=== PATIENT | female | born 1990 | race Caucasian/White ===

== ENCOUNTER 2024-09-04 17:52 | Emergency (ER) | payer OTHER ==
[2024-09-04 18:20] VITALS: RESP 18; TEMP 97
[2024-09-04 18:30] LABS: Absolute Neutrophil Ct (ANC) 3.01 x10^3/uL (1.56-6.13); BASOPHIL % 0.2 % (0.1-1.2); Basophil (Absolute #) 0.01 x10^3/uL (0.01-0.08); Eosinophil % 1.9 % (0.7-5.8); Eosinophil (Absolute #) 0.09 x10^3/uL (0.04-0.36); Hematocrit 42.1 % (34.1-44.9); Hemoglobin 13.8 g/dL (11.2-15.7); IMMATURE GRAN # 0.02 x10^3u/L (0.001-0.031); IMMATURE GRAN % 0.4 % (0.001-0.429); Lymphocyte (Absolute #) 1.13 x10^3/uL (1.18-3.74); Lymphocytes % 23.5 % (19.3-51.7); Mean Cell Volume 90.7 fL (79.4-94.8); Mean Corpuscular Hemoglobin 29.7 pg (25.6-32.2); Mean Corpuscular Hgb Concent. 32.8 g/dL (32.2-35.5); Mean Platelet Volume 9.7 fL (9.4-12.3); Monocyte (Absolute #) 0.54 x10^3/uL (0.24-0.86); Monocytes % 11.3 % (4.7-12.5); Neutrophil % 62.7 % (34.0-71.1); Platelet Count 286 x10^3/uL (182-369); Red Blood Count 4.64 x10^6/uL (3.93-5.22); Red Cell Distribution Width 13.6 % (11.7-14.4); White Blood Count 4.8 x10^3/uL (3.98-10.04)
[2024-09-04 18:42] LABS: Appearance Cloudy (Clear); Bilirubin Negative (Negative); Blood Negative (Negative); Glucose, Urine Negative (Negative); Ketones Trace (Negative); Leukocyte Esterase Negative (Negative); Nitrite Positive (Negative); Ph 5.5 (4.6-8.0); Protein,Urine Dip Negative (Negative); Specific Gravity 1.025 (1.005-1.030)
[2024-09-04 18:43] LABS: HCG SERUM TEST NEGATIVE (NEGATIVE)
[2024-09-04 18:44] LABS: Bacteria Many /HPF (None Seen); Epithelial Cells Few /HPF (None Seen); RBC 0-2 /HPF (0-5); WBC 0-2 /HPF (0-5)
[2024-09-04 18:45] LABS: ACETAMINOPHEN < 10 ug/ml (10-30); ALBUMIN 4.3 g/dL (3.5-5.0); ALKALINE PHOSPHATASE 66 U/L (38-126); ANION GAP 13.7 MEQ/L (5-15); BLOOD UREA NITROGEN 17 mg/dL (7-17); CHLORIDE 110 mmol/L (98-107); Calcium 9.3 mg/dL (8.4-10.2); Carbon Dioxide 24 mmol/L (22-30); Creatinine 1 1.11 mg/dL (0.52-1.04); EST GLOMERULAR FILTRATION RATE 66.9 ML/MIN; ETHYL ALCOHOL < 10 mg/dL (0-10); Glucose 98 mg/dL (74-106); SALICYLATE < 1.0 mg/dL (2-20); SGOT/AST 45 U/L (14-36); SGPT/ALT 62 U/L (0-35); SODIUM 143 mmol/L (135-145); Total Protein 7.7 g/dL (6.3-8.2)
--- NOTE | 2024-09-04 19:43 | ERPHSYRPT ---
- History of Present Illness Time Seen by Provider: 09/04/24 19:37 Source: patient Exam Limitations: no limitations Patient Subjective Stated Complaint: PT HERE FOR STRESS AND DEPRESSION, Triage Nursing Assessment: PT BROUGHT IN BY POLICE, HER BOYFRIEND CALLED POLICE BECAUSE SHE PUT A CORD AROUND HER NECK. SHE DENIES WANTING TO HARM HERSELF, SHE STATES SHE IS UNDER A LOT OF STRESS SHE HAS A FREIND , HER BOYFRIEND SAIRA HAVE CANCER AND HER DAUGHTER IS AT A MENTAL HEALTH FACILTY. SHE VOICES BEING OVERWHELMED AT HOME, PT HERE [place], WALKE IN GAIT STEADY, RESP EASY, SKIN W/D/P.MOVES ALL EXT WELL. NO REDNESS OR ABRASIONS TO NECK Physician History: This is an obese 34-year-old white female patient who presents to the emergency department escorted by law enforcement secondary to the patient having stress, depression and suicidal gesture with wrapping a cord around her neck. In the last several weeks she has had a large number of stressful events including an older daughter with suicidal and homicidal tendencies wreaking havoc at the home per patient report. She also found out today that her significant other was diagnosed with prostate cancer. She already has history of depression and she states she has not been taking her medications because, although it helps control her depression, it also makes her sleepy and drowsy and she states she needs to be awake and more alert with her older daughter being at home and having outbursts of anger and suicidal, homicidal gestures. Patient denies headache. She denies shortness of breath. She denies abdominal pain. She denies chest pain Timing/Duration: today Severity of Symptoms-Max: moderate Severity of Symptoms-Current: moderate Context related to: significant other, living circumstances Suicidal thoughts: gesture Associated Symptoms: anxiety, depressed, suicidal ideation Previous symptoms: no prior history, no recent treatment Allergies/Adverse Reactions: No Known Drug Allergies Allergy (Unverified 09/04/24 18:02) Home Medications: Lumateperone Tosylate [Caplyta] 42 mg PO DAILY 09/04/24 [History] Naproxen 500 mg [Naprosyn 500 MG] 500 mg PO BID 09/04/24 [History] Spironolactone 25 mg [Aldactone 25 MG] 25 mg PO DAILY 09/04/24 [History] Tizanidine HCl 1 ea DAILY 09/04/24 [History] Hx Influenza Vaccination/Date Given: No Hx Pneumococcal Vaccination/Date Given: No Immunizations Up to Date: Yes Travel Risk - International Travel Have you traveled outside of the country in past 3 weeks: No - Emerging Infectious Disease Are you exhibiting symptoms associated with any current EIDs: No - Past Medical History Pertinent Past Medical History: Yes Psycho-Social History: Anxiety, Depression - Past Surgical History Past Surgical History: Yes Gastrointestinal: Cholecystectomy - Female History Hx Last Menstrual Period: SEPT Hx Now: No - Social History Smoking Status: Never smoker Exposure to second hand smoke: No Drug Use: none - Social Determinants of Health Will the patient participate in the screening: Yes Do you worry about a steady place to live?: Yes Do you have any problems with any of the following?: Lack of heat In the past 12 months,have you had to go without utilities?: Yes Transportation Issues: Yes Has anyone in your support network made you feel unsafe?: No Have you or anyone in your house had to go without enough: Yes - Review of Systems Constitutional: No Symptoms Eyes: No Symptoms Ears, Nose, & Throat: No Symptoms Respiratory: No Symptoms Cardiac: No Symptoms Abdominal/Gastrointestinal: No Symptoms Genitourinary Symptoms: No Symptoms Musculoskeletal: No Symptoms Skin: No Symptoms Neurological: No Symptoms Psychological: Anxiety, Depression, Suicidal Ideations Endocrine: No Symptoms Hematologic/Lymphatic: No Symptoms Immunological/Allergic: No Symptoms All Other Systems: Reviewed and Negative - Nursing Vital Signs Nursing Vital Signs: Initial Vital Signs Temperature 97.0 F 09/04/24 18:18 Pulse Rate 104 H 09/04/24 18:18 Respiratory Rate 18 09/04/24 18:18 Blood Pressure 158/111 09/04/24 18:18 O2 Sat by Pulse Oximetry 96 09/04/24 18:18 Pain Scale Pain Intensity 0 - Physical Exam General Appearance: no apparent distress, alert, anxiety, obese Eyes, Ears, Nose, Throat Exam: normal ENT inspection, moist mucous membranes Neck Exam: normal inspection, non-tender, supple, full range of motion Respiratory Exam: normal breath sounds, lungs clear, airway intact, No chest tenderness, No respiratory distress Cardiovascular Exam: regular rate/rhythm, normal heart sounds, normal peripheral pulses Gastrointestinal/Abdominal Exam: soft, normal bowel sounds, No tenderness Current Suicidality: has suicide plan Neurological Exam: alert, normal mood/affect, calm, 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 The QTc is 412.) Ordered Tests: Active Orders 24 hr Category Date Time Status EKG-ER Only STAT Care 09/04/24 19:53 Active ACO SDOH Referral ONCE Cons 09/04/24 18:18 Active Psychiatric Consult STAT Cons 09/04/24 18:16 Active ACETAMINOPHEN Stat Lab 09/04/24 18:29 Completed CBC W DIFF Stat Lab 09/04/24 18:29 Completed CMP Stat Lab 09/04/24 18:29 Completed CULTURE,URINE Stat Lab 09/04/24 18:22 Received ETHYL ALCOHOL Stat Lab 09/04/24 18:29 Completed HCG QUALITATIVE, SERUM Stat Lab 09/04/24 18:29 Completed SALICYLATE Stat Lab 09/04/24 18:29 Completed UA W/RFX UR CULTURE Stat Lab 09/04/24 18:22 Completed Urine Triage Profile Stat Lab 09/04/24 20:25 Completed Lab/Rad Data: Laboratory Result Diagrams 09/04/24 18:29 09/04/24 18:29 Laboratory Results 09/04/24 09/04/24 09/04/24 Range/Units 20:25 18:29 18:29 WBC (3.98-10.04) x10^3/uL RBC (3.93-5.22) x10^6/uL Hgb (11.2-15.7) g/dL Hct (34.1-44.9) % MCV (79.4-94.8) fL MCH (25.6-32.2) pg MCHC (32.2-35.5) g/dL RDW (11.7-14.4) % Plt Count (182-369) x10^3/uL MPV (9.4-12.3) fL Gran % (34.0-71.1) % Immature Gran % (Auto) (0.001-0.429) % Nucleat RBC Rel Count (0.00-0.2) % Eos # (Auto) (0.04-0.36) x10^3/uL Immature Gran # (Auto) (0.001-0.031) x10^3u/L Absolute Lymphs (auto) (1.18-3.74) x10^3/uL Absolute Monos (auto) (0.24-0.86) x10^3/uL Absolute Nucleated RBC (0.00-0.012) x10^3u/L Lymphocytes % (19.3-51.7) % Monocytes % (4.7-12.5) % Eosinophils % (0.7-5.8) % Basophils % (0.1-1.2) % Absolute Granulocytes (1.56-6.13) x10^3/uL Basophils # (0.01-0.08) x10^3/uL Sodium 143 (135-145) mmol/L Potassium 4.0 (3.5-5.1) mmol/L Chloride 110 H (98-107) mmol/L Carbon Dioxide 24 (22-30) mmol/L Anion Gap 13.7 (5-15) MEQ/L BUN 17 (7-17) mg/dL Creatinine 1.11 H (0.52-1.04) mg/dL Estimated GFR 66.9 ML/MIN Glucose 98 (74-106) mg/dL Calcium 9.3 (8.4-10.2) mg/dL Total Bilirubin 0.40 (0.2-1.3) mg/dL AST 45 H (14-36) U/L ALT 62 H (0-35) U/L Alkaline Phosphatase 66 (38-126) U/L Serum Total Protein 7.7 (6.3-8.2) g/dL Albumin 4.3 (3.5-5.0) g/dL Serum HCG, Qual NEGATIVE (NEGATIVE) Urine Color (Yellow) Urine Appearance (Clear) Urine pH (4.6-8.0) Ur Specific [place] (1.005-1.030) Urine Protein (Negative) Urine Glucose (UA) (Negative) mg/dL Urine Ketones (Negative) Urine Blood (Negative) Urine Nitrite (Negative) Urine Bilirubin (Negative) Urine Urobilinogen (0.2) mg/dL Ur Leukocyte Esterase (Negative) U Hyaline Cast (Auto) (0-2) /LPF Urine Microscopic RBC (0-5) /HPF Urine Microscopic WBC (0-5) /HPF Ur Epithelial Cells (None Seen) /HPF Urine Bacteria (None Seen) /HPF Urine Culture Reflexed (NO) Salicylates < 1.0 L (2-20) mg/dL Urine Opiates Level NEGATIVE (NEGATIVE) Ur Methadone NEGATIVE (NEGATIVE) Acetaminophen < 10 L (10-30) ug/ml Urine Barbiturates NEGATIVE (NEGATIVE) Ur Phencyclidine (PCP) NEGATIVE (NEGATIVE) Urine Amphetamine NEGATIVE (NEGATIVE) U Benzodiazepine Level NEGATIVE (NEGATIVE) Urine Cocaine NEGATIVE (NEGATIVE) Urine Marijuana (THC) NEGATIVE (NEGATIVE) Ethyl Alcohol < 10 (0-10) mg/dL 09/04/24 09/04/24 Range/Units 18:29 18:22 WBC 4.8 (3.98-10.04) x10^3/uL RBC 4.64 (3.93-5.22) x10^6/uL Hgb 13.8 (11.2-15.7) g/dL Hct 42.1 (34.1-44.9) % MCV 90.7 (79.4-94.8) fL MCH 29.7 (25.6-32.2) pg MCHC 32.8 (32.2-35.5) g/dL RDW 13.6 (11.7-14.4) % Plt Count 286 (182-369) x10^3/uL MPV 9.7 (9.4-12.3) fL Gran % 62.7 (34.0-71.1) % Immature Gran % (Auto) 0.4 (0.001-0.429) % Nucleat RBC Rel Count 0.0 (0.00-0.2) % Eos # (Auto) 0.09 (0.04-0.36) x10^3/uL Immature Gran # (Auto) 0.02 (0.001-0.031) x10^3u/L Absolute Lymphs (auto) 1.13 L (1.18-3.74) x10^3/uL Absolute Monos (auto) 0.54 (0.24-0.86) x10^3/uL Absolute Nucleated RBC 0.00 (0.00-0.012) x10^3u/L Lymphocytes % 23.5 (19.3-51.7) % Monocytes % 11.3 (4.7-12.5) % Eosinophils % 1.9 (0.7-5.8) % Basophils % 0.2 (0.1-1.2) % Absolute Granulocytes 3.01 (1.56-6.13) x10^3/uL Basophils # 0.01 (0.01-0.08) x10^3/uL Sodium (135-145) mmol/L Potassium (3.5-5.1) mmol/L Chloride (98-107) mmol/L Carbon Dioxide (22-30) mmol/L Anion Gap (5-15) MEQ/L BUN (7-17) mg/dL Creatinine (0.52-1.04) mg/dL Estimated GFR ML/MIN Glucose (74-106) mg/dL Calcium (8.4-10.2) mg/dL Total Bilirubin (0.2-1.3) mg/dL AST (14-36) U/L ALT (0-35) U/L Alkaline Phosphatase (38-126) U/L Serum Total Protein (6.3-8.2) g/dL Albumin (3.5-5.0) g/dL Serum HCG, Qual (NEGATIVE) Urine Color Yellow (Yellow) Urine Appearance Cloudy A (Clear) Urine pH 5.5 (4.6-8.0) Ur Specific [place] 1.025 (1.005-1.030) Urine Protein Negative (Negative) Urine Glucose (UA) Negative (Negative) mg/dL Urine Ketones Trace A (Negative) Urine Blood Negative (Negative) Urine Nitrite Positive A (Negative) Urine Bilirubin Negative (Negative) Urine Urobilinogen 1.0 A (0.2) mg/dL Ur Leukocyte Esterase Negative (Negative) U Hyaline Cast (Auto) 3-5 A (0-2) /LPF Urine Microscopic RBC 0-2 (0-5) /HPF Urine Microscopic WBC 0-2 (0-5) /HPF Ur Epithelial Cells Few (None Seen) /HPF Urine Bacteria Many A (None Seen) /HPF Urine Culture Reflexed YES (NO) Salicylates (2-20) mg/dL Urine Opiates Level (NEGATIVE) Ur Methadone (NEGATIVE) Acetaminophen (10-30) ug/ml Urine Barbiturates (NEGATIVE) Ur Phencyclidine (PCP) (NEGATIVE) Urine Amphetamine (NEGATIVE) U Benzodiazepine Level (NEGATIVE) Urine Cocaine (NEGATIVE) Urine Marijuana (THC) (NEGATIVE) Ethyl Alcohol (0-10) mg/dL - Progress Progress: unchanged Progress Note: 09/04/24 19:42 My patient's medical issue today is based on review of the patient's past medical history, review of the patient's medication list, review the patient drug allergy list, history present illness and physical findings on examination. The workup in this patient includes urinalysis, urine drug triage, twelve-lead EKG, CBC, CMP, salicylate level, acetaminophen level, alcohol level. Differential diagnosis includes but is not limited to anxiety, depression, suicidal ideation, suicidal gesture 09/04/24 22:42 I interpreted the patient's laboratory data results. Based on the laboratory data results, there are no acute, emergent medical issues. Mental health services reviewed this patient's chart. Based on their workup and review of the chart, they are allowing the patient be discharged home with a safety plan to follow-up on. We will discharge the patient once we receive the final clinical diagnosis and the patient has signed the safety plan that she is to follow. Counseled pt/family regarding: lab results, diagnosis - Departure Departure Disposition: Home Clinical Impression: Depression Condition: Stable Critical Care Time: No Referrals: BROWN CHRISTIAN MD [Primary Care Provider] - Follow up/PCP as directed Additional Instructions: Take all your medications as prescribed. Follow the safety plan that you have agreed to follow with mental health services.
[2024-09-04 20:45] LABS: Amphetamine,Urine NEGATIVE (NEGATIVE); Barbiturate,Urine NEGATIVE (NEGATIVE); Benzodiazepine,Urine NEGATIVE (NEGATIVE); Cocaine,Urine NEGATIVE (NEGATIVE); Methadone,Urine NEGATIVE (NEGATIVE); Opiate,Urine NEGATIVE (NEGATIVE); PCP,Urine NEGATIVE (NEGATIVE); THC,Urine NEGATIVE (NEGATIVE)
[2024-09-04 22:44] VITALS: O2SAT 98
[2024-09-04 23:13] VITALS: BP 157/103; PULSE 99
== END 2024-09-04 23:21 | disposition home or self-care (01) ==
LOC: ED 17:52
DX: F32.A Depression, unspecified (principal); R45.851 Suicidal ideations; Z79.899 Other long term (current) drug therapy; Z63.79 Other stressful life events affecting family and household; Z62.820 Parent-biological child conflict; Z91.148 Patient's other noncompliance with medication regimen for other reason; Z59.11 Inadequate housing environmental temperature; Z59.12 Inadequate housing utilities; Z59.82 Transportation insecurity; Z59.48 Other specified lack of adequate food
CPT/HCPCS: 36415; 80053; 80143; 80179; 80307; 81001; 82077; 84703; 85025; 87077; 87086; 87186; 93005; 99284; Q3014; 90791